=== PATIENT | female | born 1940 | race Caucasian/White ===

== ENCOUNTER 2016-08-27 15:03 | Outpatient (CLI) | payer MEDICARE, OTHER | END 2016-08-27 15:04 | disposition home or self-care (01) | DX: E21.3 Hyperparathyroidism, unspecified (principal); K91.2 Postsurgical malabsorption, not elsewhere classified; Z98.84 Bariatric surgery status ==

== ENCOUNTER 2016-09-10 08:03 | Day surgery (SDC) | payer MEDICARE, OTHER ==
[2016-09-10] MEDS ORDERED: TROPICAMIDE 1% OPHTH 2 ML DROPS OPTH ONE (08:25)
[2016-09-10] MEDS ORDERED: CYCLOPENTOLATE 1% OPHTH DROPS 2 ML OPTH ONE (08:25)
[2016-09-10] MEDS ORDERED: KETOROLAC 0.45% OPHTH DROPS OPTH ONE (08:25)
[2016-09-10] MEDS ORDERED: LACTATED RINGERS 500 ML IV ONE (08:27)
[2016-09-10] MEDS ORDERED: MIDAZOLAM 2 MG/2 ML VIAL IVP ONE (09:38)
[2016-09-10] MEDS ORDERED: TETRACAINE 0.5% OPHTH DROPS 4 ML OPTH ONE (09:43)
[2016-09-10] MEDS ORDERED: levoFLOXacin 0.5% OPHTH DROPS 5 ML OPTH ONE (09:43)
[2016-09-10] MEDS ORDERED: EPINEPHrine 1 MG/ML AMP IO ONE (09:43)
[2016-09-10] MEDS ORDERED: CHONDR SULF/HYALURONATE SYRINGE IO ONE (09:43)
[2016-09-10] MEDS ORDERED: PROPARACAINE 0.5% OPHTH DROPS 15 ML OPTH ONE (09:43)
[2016-09-10] MEDS ORDERED: BRIMONIDINE 0.2% OPHTH DROPS 5 ML OPTH ONE (09:43)
[2016-09-10] MEDS ORDERED: BSS/LIDOCAINE/EPINEPHRINE 1 ML SYRINGE IO ONE (09:44)
== END 2016-09-10 08:04 | disposition home or self-care (01) ==
PROC: 08RJ3JZ Replacement of Right Lens with Synthetic Substitute, Percutaneous Approach (ICD-10-PCS; principal; 2016-09-10 09:00)
DX: H25.11 Age-related nuclear cataract, right eye (principal); Z79.82 Long term (current) use of aspirin; J45.909 Unspecified asthma, uncomplicated; I10 Essential (primary) hypertension; E03.9 Hypothyroidism, unspecified; Z88.2 Allergy status to sulfonamides; Z88.5 Allergy status to narcotic agent
CPT/HCPCS: 66984; V2632

== ENCOUNTER 2016-11-25 16:06 | Outpatient (CLI) | payer MEDICARE, OTHER ==
[2016-11-25 16:46] LABS: CALCIUM 9.2 mg/dL (8.5-10.3); CREATININE 0.6 mg/dL (0.4-1.0); POTASSIUM 3.8 mmol/L (3.5-5.0)
[2016-11-26 08:03] LABS: TEST RESULT REPORT (())
== END 2016-11-25 16:07 | disposition home or self-care (01) ==
LOC: LAB 16:06
PROVIDERS: ATTEND Internal Medicine Endocrinology, Diabetes & Metabolism
DX: E21.3 Hyperparathyroidism, unspecified (principal)
CPT/HCPCS: 36415; 80048; 81599; 82306; 83519; 83970

== ENCOUNTER 2017-02-24 13:23 | Outpatient (CLI) | payer MEDICARE, OTHER ==
[2017-02-24 14:38] LABS: THYROID STIMULATING HORMONE 1.11 uIU/mL (0.34-5.60)
[2017-02-24 15:43] LABS: CALCIUM 9.1 mg/dL (8.5-10.3); CREATININE 0.7 mg/dL (0.4-1.0); MAGNESIUM 2.1 mg/dL (1.7-2.8); POTASSIUM 4.6 mmol/L (3.5-5.0)
== END 2017-02-24 13:24 | disposition home or self-care (01) ==
LOC: LAB 13:23
PROVIDERS: ATTEND Internal Medicine
DX: E21.3 Hyperparathyroidism, unspecified (principal); E21.2 Other hyperparathyroidism; E03.9 Hypothyroidism, unspecified
CPT/HCPCS: 36415; 80048; 82306; 83735; 83970; 84439; 84443

== ENCOUNTER 2017-05-14 08:31 | Outpatient (CLI) | payer MEDICARE, OTHER ==
--- NOTE | 2017-05-14 15:18 | DEXA Report ---
DEXA SCAN: 05/14/2017 CLINICAL INDICATION: History of hyperparathyroidism, bariatric surgery, postmenopausal. TECHNIQUE: Dual energy x-ray absorptiometry (DXA) was performed on a [employer] system. Regions measured are the AP spine, femoral neck, and, if needed, forearm. COMPARISON: None. In accordance with the International Society for Clinical Densitometry (ISCD) guidelines, data from previous exams may be reanalyzed using current recommendations and techniques. This is done to allow a more accurate basis for comparison with the current study. FINDINGS LUMBAR SPINE DATA: REGION BMD (g/cm/cm) T-SCORE Z-SCORE L1 0.928 -1.7 -0.6 L2 1.007 -1.6 -0.5 L3 1.106 -0.8 0.3 L4 1.190 -0.1 1.0 TOTAL 1.075 -0.9 0.2 NOTE: All evaluable vertebrae are used for classification. HIP DATA: REGION BMD (g/cm/cm) T-SCORE Z-SCORE Neck 0.797 -1.7 -0.1 TOTAL 0.894 -0.9 0.5 NOTE: The femoral neck or total proximal femur, whichever is lowest, is used for classification. FOREARM DATA: REGION BMD (g/cm/cm) T-SCORE Z-SCORE 1/3 0.491 -4.4 -1.8 NOTE: The 33% radius of the nondominant forearm is used for classification. IMPRESSION 1. THE WHO CLASSIFICATION BASED ON THE INTERNATIONAL REFERENCE STANDARD: OSTEOPOROSIS. FRACTURE RISK: HIGH. 2. LEFT FOREARM EVALUATION PERFORMED DUE TO HISTORY OF HYPERPARATHYROIDISM. RECOMMENDATION: Patients with diagnosis of osteoporosis or osteopenia should have regular bone mineral density assessment. For those eligible for Medicare, routine testing is allowed once every 2 years. Testing frequency can be increased for patients who have rapidly progressing disease or for those who are receiving medical therapy to restore bone mass. COMMENT: World Health Organization (WHO) definitions for osteoporosis and osteopenia: NORMAL BMD: T-score at -1.0 or higher, fracture risk is low. OSTEOPENIA BMD: T-score between -1.0 and -2.5, fracture risk is increased. OSTEOPOROSIS BMD: T-score at -2.5 or lower, fracture risk high. National Osteoporosis Foundation recommends: 1. Obtain adequate dietary calcium (at least 1200 mg per day) and vitamin D (400 -800 international units per day). 2. Participate, as appropriate, in regular weightbearing and muscle- strengthening exercise. 3. Avoid tobacco use and reduce alcohol and caffeine intake. 4. For more detailed information see the website at www.NOF.org. REVISED: REPORT ORIG. SIGNED 05/15/2017 @ 0930; ORDERS LINKED 05/19/2017 JLL MTDD
== END 2017-05-14 08:32 | disposition home or self-care (01) ==
LOC: DI 08:31
PROVIDERS: ATTEND Internal Medicine Endocrinology, Diabetes & Metabolism
DX: M81.0 Age-related osteoporosis without current pathological fracture (principal); E21.3 Hyperparathyroidism, unspecified; K91.2 Postsurgical malabsorption, not elsewhere classified; Z98.84 Bariatric surgery status
CPT/HCPCS: 36415; 77080; 77081; 80053; 82306; 82607; 82728; 82747; 83540; 83970; 84466; 85025

== ENCOUNTER 2017-05-14 08:58 | Outpatient (CLI) | payer MEDICARE, OTHER ==
[2017-05-14 09:27] LABS: BASOPHILS % (AUTO) 0.1 %; HCT - HEMATOCRIT 37.4 % (37.0-47.0); HGB - HEMOGLOBIN 12.7 g/dL (12.0-16.0); LYMPHOCYTES # (AUTO) 0.7 10^3/uL (1.5-3.5); LYMPHOCYTES % (AUTO) 6.1 %; MEAN CORPUSCULAR HEMOGLOBIN 32.7 pg (27.0-31.0); MEAN CORPUSCULAR HGB CONC 33.9 g/dL (32.0-36.0); MEAN CORPUSCULAR VOLUME 96.4 fL (81.0-99.0); MEAN PLATELET VOLUME 7.8 fL (7.9-10.8); MONOCYTES # (AUTO) 0.5 10^3/uL (0.0-1.0); MONOCYTES % (AUTO) 4.2 %; NEUTROPHILS % (AUTO) 89.6 %; RED BLOOD COUNT 3.88 10^6/uL (4.20-5.40); RED CELL DISTRIBUTION WIDTH 13.9 % (12.0-15.0); UNCORRECTED WHITE BLOOD COUNT 11.2 x10^3/uL; WHITE BLOOD COUNT 11.2 x10^3/uL (4.8-10.8)
[2017-05-14 10:05] LABS: ALBUMIN/GLOBULIN RATIO 1.4 (1.0-2.2); BILIRUBIN,TOTAL 0.4 mg/dL (0.2-1.0); CREATININE 0.8 mg/dL (0.4-1.0); POTASSIUM 4.2 mmol/L (3.5-5.0); TOTAL PROTEIN 6.6 g/dL (6.7-8.2)
[2017-05-14 10:21] LABS: FERRITIN 37.6 ng/mL (11.0-306.8)
== END 2017-05-14 08:59 | disposition home or self-care (01) ==
LOC: LAB 08:58
PROVIDERS: ATTEND Internal Medicine Endocrinology, Diabetes & Metabolism
DX: M81.0 Age-related osteoporosis without current pathological fracture (principal); E21.3 Hyperparathyroidism, unspecified; K91.2 Postsurgical malabsorption, not elsewhere classified; Z98.84 Bariatric surgery status
CPT/HCPCS: 36415; 80053; 82306; 82607; 82728; 82747; 83540; 83970; 84466; 85025

== ENCOUNTER 2017-08-27 10:55 | Outpatient (CLI) | payer MEDICARE, OTHER ==
[2017-08-27 11:28] LABS: CREATININE,URINE 48.2 mg/dL
[2017-08-27 11:36] LABS: CALCIUM 9.2 mg/dL (8.5-10.3); CREATININE 0.7 mg/dL (0.4-1.0)
== END 2017-08-27 10:56 | disposition home or self-care (01) ==
LOC: LAB 10:55
PROVIDERS: ATTEND Internal Medicine Endocrinology, Diabetes & Metabolism
DX: M81.0 Age-related osteoporosis without current pathological fracture (principal); E21.3 Hyperparathyroidism, unspecified; Z98.84 Bariatric surgery status
CPT/HCPCS: 36415; 80048; 81599; 82306; 82340; 82570; 83970

== ENCOUNTER 2017-09-18 11:43 | Outpatient (CLI) | payer MEDICARE, OTHER ==
[2017-09-18 12:05] LABS: BASOPHILS # (AUTO) 0.1 10^3/uL (0.0-0.1); BASOPHILS % (AUTO) 1.3 %; EOSINOPHILS # (AUTO) 0.1 10^3/uL (0.0-0.7); EOSINOPHILS % (AUTO) 1.5 %; HGB - HEMOGLOBIN 13.4 g/dL (12.0-16.0); LYMPHOCYTES # (AUTO) 1.1 10^3/uL (1.5-3.5); LYMPHOCYTES % (AUTO) 20.1 %; MEAN CORPUSCULAR HEMOGLOBIN 32.4 pg (27.0-31.0); MEAN CORPUSCULAR VOLUME 95.2 fL (81.0-99.0); MEAN PLATELET VOLUME 7.3 fL (7.9-10.8); MONOCYTES # (AUTO) 0.4 10^3/uL (0.0-1.0); MONOCYTES % (AUTO) 8.3 %; NEUTROPHILS # (AUTO) 3.7 10^3/uL (1.5-6.6); NEUTROPHILS % (AUTO) 68.8 %; PLT - PLATELET COUNT 177 10^3/uL (130-450); RED BLOOD COUNT 4.12 10^6/uL (4.20-5.40); RED CELL DISTRIBUTION WIDTH 13.7 % (12.0-15.0); WHITE BLOOD COUNT 5.4 x10^3/uL (4.8-10.8)
[2017-09-18 12:19] LABS: ALBUMIN/GLOBULIN RATIO 1.5 (1.0-2.2); BILIRUBIN,TOTAL 0.8 mg/dL (0.2-1.0); CALCIUM 9.3 mg/dL (8.5-10.3); CREATININE 0.5 mg/dL (0.4-1.0); TOTAL PROTEIN 6.7 g/dL (6.7-8.2)
[2017-09-18 12:25] LABS: HB2 TOTAL 14.3 g/dL; HEMOGLOBIN A1C 0.55 g/dL; HEMOGLOBIN A1C % 5.7 % (4.6-6.2)
== END 2017-09-18 11:44 | disposition home or self-care (01) ==
LOC: LAB 11:43
PROVIDERS: ATTEND Internal Medicine
DX: E88.81 Metabolic syndrome and other insulin resistance (principal); C50.919 Malignant neoplasm of unspecified site of unspecified female breast; M85.80 Other specified disorders of bone density and structure, unspecified site; Z79.899 Other long term (current) drug therapy
CPT/HCPCS: 36415; 80053; 83036; 84443; 85025

== ENCOUNTER 2017-11-25 10:18 | Outpatient (CLI) | payer MEDICARE, OTHER ==
[2017-11-25 11:11] LABS: CALCIUM 9.1 mg/dL (8.5-10.3); CREATININE 0.7 mg/dL (0.4-1.0)
== END 2017-11-25 10:19 | disposition home or self-care (01) ==
LOC: LAB 10:18
PROVIDERS: ATTEND Internal Medicine Endocrinology, Diabetes & Metabolism
DX: E21.3 Hyperparathyroidism, unspecified (principal); M81.0 Age-related osteoporosis without current pathological fracture; Z98.84 Bariatric surgery status
CPT/HCPCS: 36415; 80048; 82306; 83970

== ENCOUNTER 2017-11-26 08:00 | Outpatient (CLI) | payer MEDICARE, OTHER | END 2017-11-26 23:59 | disposition home or self-care (01) | LOC: LAB.R 08:00 | PROVIDERS: ATTEND Internal Medicine Endocrinology, Diabetes & Metabolism | DX: E21.3 Hyperparathyroidism, unspecified (principal) | CPT/HCPCS: 82340 ==

== ENCOUNTER 2018-03-09 16:02 | Outpatient (CLI) | payer MEDICARE, OTHER ==
[2018-03-09 16:35] LABS: CALCIUM 9.1 mg/dL (8.5-10.3); CREATININE 0.6 mg/dL (0.4-1.0)
== END 2018-03-09 16:03 | disposition home or self-care (01) ==
LOC: LAB 16:02
PROVIDERS: ATTEND Internal Medicine Endocrinology, Diabetes & Metabolism
DX: E21.3 Hyperparathyroidism, unspecified (principal); M81.0 Age-related osteoporosis without current pathological fracture; Z98.84 Bariatric surgery status
CPT/HCPCS: 36415; 80048; 82306; 83970

== ENCOUNTER 2018-05-11 15:55 | Outpatient (CLI) | payer MEDICARE, OTHER | END 2018-05-11 15:56 | disposition home or self-care (01) | LOC: LAB.R 15:55 | PROVIDERS: ATTEND Internal Medicine | DX: N30.00 Acute cystitis without hematuria (principal) | CPT/HCPCS: 87086; 87181 ==

== ENCOUNTER 2018-05-25 11:41 | Outpatient (CLI) | payer MEDICARE, OTHER ==
[2018-05-25 12:12] LABS: BASOPHILS # (AUTO) 0.1 10^3/uL (0.0-0.1); BASOPHILS % (AUTO) 1.9 %; EOSINOPHILS # (AUTO) 0.1 10^3/uL (0.0-0.7); EOSINOPHILS % (AUTO) 1.6 %; HGB - HEMOGLOBIN 12.4 g/dL (12.0-16.0); LYMPHOCYTES # (AUTO) 1.6 10^3/uL (1.5-3.5); LYMPHOCYTES % (AUTO) 25.5 %; MEAN CORPUSCULAR HEMOGLOBIN 32.9 pg (27.0-31.0); MEAN CORPUSCULAR HGB CONC 34.4 g/dL (32.0-36.0); MEAN CORPUSCULAR VOLUME 95.7 fL (81.0-99.0); MEAN PLATELET VOLUME 7.4 fL (7.9-10.8); MONOCYTES # (AUTO) 0.5 10^3/uL (0.0-1.0); PLT - PLATELET COUNT 268 10^3/uL (130-450); RED BLOOD COUNT 3.77 10^6/uL (4.20-5.40); RED CELL DISTRIBUTION WIDTH 13.7 % (12.0-15.0); WHITE BLOOD COUNT 6.4 x10^3/uL (4.8-10.8)
[2018-05-25 12:30] LABS: ALBUMIN 3.7 g/dL (3.2-5.5); ALBUMIN/GLOBULIN RATIO 1.4 (1.0-2.2); BILIRUBIN,TOTAL 0.4 mg/dL (0.2-1.0); CALCIUM 8.9 mg/dL (8.5-10.3); CREATININE 0.7 mg/dL (0.4-1.0); TOTAL PROTEIN 6.4 g/dL (6.7-8.2)
[2018-05-25 14:04] LABS: FERRITIN 53.4 ng/mL (11.0-306.8)
== END 2018-05-25 11:42 | disposition home or self-care (01) ==
LOC: LAB 11:41
PROVIDERS: ATTEND Nurse Practitioner Adult Health
DX: K91.2 Postsurgical malabsorption, not elsewhere classified (principal)
CPT/HCPCS: 36415; 80053; 82306; 82607; 82728; 82747; 83540; 83970; 84425; 84466; 84590; 85025

== ENCOUNTER 2018-06-18 15:37 | Outpatient (CLI) | payer MEDICARE, OTHER | END 2018-06-18 15:38 | disposition critical access hospital (66) | LOC: EMS 15:37 | PROVIDERS: ATTEND Surgery | DX: S01.21XA Laceration without foreign body of nose, initial encounter (principal); W18.30XA Fall on same level, unspecified, initial encounter; Y92.002 Bathroom of unspecified non-institutional (private) residence as the place of occurrence of the external cause | CPT/HCPCS: A0425; A0429 ==

== ENCOUNTER 2018-06-18 16:01 | Emergency (ER) | payer MEDICARE, OTHER ==
--- NOTE | 2018-06-18 16:15 | ED Physician Documentation ---
History of Present Illness - Stated complaint Stated Complaint: head inj - Chief complaint Chief Complaint: Heent - History obtained from History obtained from: Patient, Family, EMS - History of Present Illness Timing: Today (She had a few drinks and tripped and fell scraping of her face. No loss of consciousness or other injuries) Review of Systems Ten Systems: 10 systems reviewed and negative Constitutional: reports: Reviewed and negative Throat: reports: Reviewed and negative Cardiac: reports: Reviewed and negative PD PAST MEDICAL HISTORY - Past Medical History Cardiovascular: None Respiratory: Asthma Endocrine/Autoimmune: None GI: None, GERD : None HEENT: None Psych: None Musculoskeletal: Osteoporosis Derm: None - Past Surgical History General: Gastric surgery /IT DATA ARCHITECT: Hysterectomy HEENT: Tonsil/Adenoidectomy - Present Medications Home Medications: Ambulatory Orders Medication Instructions Recorded Confirmed Acetaminophen [Tylenol] 325 mg NM Q4-6H PRN 11/29/12 10/28/17 Albuterol 2.5 mg INH Q4H PRN 11/29/12 10/28/17 Cyanocobalamin/Folic Acid [Vitamin 1,200 mcg SL Q2D 11/29/12 10/28/17 W59-[id number] Acid Tablet] Fexofenadine HCl [Gema Allergy] 60 mg PO DAILY PRN 11/29/12 10/28/17 Levothyroxine Sodium [Levoxyl] 75 mcg PO DAILY 11/29/12 10/28/17 Multivitamin [Multivitamins] 2 tab PO DAILY 11/29/12 10/28/17 Cholecalciferol (Vitamin D3) 50,000 unit PO Q3D 03/21/13 10/28/17 [Vitamin D-3] Tamoxifen Citrate 20 mg ORAL DAILY 05/03/14 10/28/17 Fluticasone [Flonase] 1 sprays KUN DAILY PRN 04/18/15 10/28/17 Fluticasone/Salmeterol [Advair Hfa 2 puffs IH DAILY 04/18/15 10/28/17 230-21 Mcg Inhaler] Reddy Cit/Mag/D3/Zn/Chute Tender/Sean/Bor 2,000 mg PO DAILY 10/17/15 10/28/17 [Citracal-Vit D + Magnesium Tab] Potassium Bicarbonate/Cit AC 20 meq PO BID 04/16/16 10/28/17 [Potassium 25 Meq Tablet Eff] hydroCHLOROthiazide [Hydrodiuril] 12.5 mg PO BID 04/16/16 10/28/17 Gabapentin 1 cap PO DAILY 10/28/17 10/28/17 Ergocalciferol [Vitamin D2] 06/18/18 Naltrexone HCl 06/18/18 - Allergies Allergies/Adverse Reactions: Allergies Allergy/AdvReac Type Severity Reaction Status Date / Time Sulfa (Sulfonamide Allergy Severe Edema Verified 06/18/18 16:06 Antibiotics) codeine Allergy Intermediate Itching Verified 06/18/18 16:06 latex Allergy Rash Verified 06/18/18 16:06 - Social History Does the pt smoke?: Yes Smoking Status: Current every day smoker Does the pt drink ETOH?: Yes Does the pt have substance abuse?: No - Immunizations Immunizations are current?: Yes PD ED PE NORMAL - Vitals Vital signs reviewed: Yes - General General: Alert and oriented X 3, No acute distress - HEENT HEENT: PERRL, EOMI, Other (No facial bony tenderness. She has resolved epistaxis but no septal hematoma or nasal tenderness. The upper lip is swollen on the right but there is no laceration.) - Neck Neck: Supple, no meningeal sign, No bony TTP - Cardiac Cardiac: RRR, No murmur - Respiratory Respiratory: No respiratory distress, Clear bilaterally - Abdomen Abdomen: Soft, Non tender - Derm Derm: Normal color, Warm and dry - Extremities Extremities: No edema, No calf tenderness / cord - Neuro Neuro: Alert and oriented X 3, Normal speech - Psych Psych: Normal mood, Normal affect Results - Vitals Vitals: Vital Signs - 24 hr 06/18/18 16:01 Heart Rate 72 Respiratory 16 Rate Blood Pressure 125/62 O2 Saturation 98 Oxygen O2 Source Room air - Rads (name of study) CT Head Radiology: EMP read contemporaneously (NAD) CT Cspine Radiology: EMP read contemporaneously ([facility] NAD) Departure - Departure Disposition: 01 Home, Self Care Clinical Impression: Fall Qualifiers: Encounter type: initial encounter Qualified Code(s): W19.XXXA - Unspecified fall, initial encounter Head injury Qualifiers: Encounter type: initial encounter Qualified Code(s): S09.90XA - Unspecified injury of head, initial encounter Condition: Good Record reviewed to determine appropriate education?: Yes Instructions: ED Head Injury Closed Sleep Mon Comments: Call your doctor to arrange a follow-up appointment, make the next available appointment. In the interim, return anytime if worse or if new symptoms develop.
[2018-06-18] MEDS: TETANUS/DIPHTHERIA/PERTUSSIS 0.5 ML SYRINGE IM ONE (16:21)
--- NOTE | 2018-06-18 17:08 | CT Report ---
Reason: head inj etoh Procedure Date: 06/18/2018 Accession Number: [id number] / [id number] Procedure: CT - Head W/O CPT Code: FULL RESULT: EXAM: CT HEAD EXAM DATE: 06/18/2018 04:20 PM. CLINICAL HISTORY: Head injury, ETOH. COMPARISON: None. TECHNIQUE: Multiaxial CT images were obtained from the foramen magnum to the vertex. Reformats: Sagittal and coronal. IV contrast: None. In accordance with CT protocol optimization, one or more of the following dose reduction techniques were utilized for this exam: automated exposure control, adjustment of mA and/or KV based on patient size, or use of iterative reconstructive technique. FINDINGS: Parenchyma: There are mild periventricular low density white matter changes. No evidence of acute infarction or hemorrhage. Extraaxial Spaces: Normal for age. No subdural or epidural collections identified. Ventricles: Normal in size and position. Sinuses and Orbits: Imaged paranasal sinuses, orbits, and mastoids show no significant abnormality. Bones: No evidence of fracture or calvarial defect. Other: None. IMPRESSION: No acute intracranial abnormality. RADIA
--- NOTE | 2018-06-18 17:17 | CT Report ---
Reason: head inj etoh Procedure Date: 06/18/2018 Accession Number: [id number] / [id number] Procedure: CT - Cervical Spine W/O CPT Code: FULL RESULT: EXAM: CT CERVICAL SPINE WITHOUT CONTRAST DATE: 06/18/2018 04:45 PM. HISTORY: Head injury; ETOH. COMPARISONS: None. TECHNIQUE: Thin-section axial images were acquired of the cervical spine without contrast. Post-processing: Coronal and sagittal reformats. Other: None. In accordance with CT protocol optimization, one or more of the following dose reduction techniques were utilized for this exam: automated exposure control, adjustment of mA and/or KV based on patient size, or use of iterative reconstructive technique. FINDINGS: Alignment: There is approximately 3 mm of C3 on C4 anterolisthesis. Bones: No fracture or bone lesion. Interspace Levels/Facets: There is moderate degenerative disk space narrowing at C4-C5, C5-C6 and C6-C7 with mild posterior degenerative bulging disk osteophyte complexes. Bilateral multilevel facet joint arthropathy present. Musculature: Normal. No fatty atrophy. Other: The paravertebral and prevertebral soft tissues are unremarkable. The lung apices are clear. IMPRESSION: 1. No cervical spine fracture or malalignment. 2. C4-C5, C5-C6 and C6-C7 disk related degenerative changes. RADIA
[2018-06-18 18:02] VITALS: BP 137/49
== END 2018-06-18 18:02 | disposition home or self-care (01) ==
LOC: EDUNIT# → ED 16:01
DX: S09.90XA Unspecified injury of head, initial encounter (principal); W18.30XA Fall on same level, unspecified, initial encounter; W22.8XXA Striking against or struck by other objects, initial encounter; R22.0 Localized swelling, mass and lump, head; F17.200 Nicotine dependence, unspecified, uncomplicated
CPT/HCPCS: 70450; 72125; 90471; 99283

== ENCOUNTER 2018-07-15 13:40 | Outpatient (CLI) | payer MEDICARE, OTHER | END 2018-07-15 23:59 | disposition home or self-care (01) | LOC: LAB.R 13:40 | PROVIDERS: ATTEND Obstetrics & Gynecology | DX: L90.0 Lichen sclerosus et atrophicus (principal); N76.0 Acute vaginitis | CPT/HCPCS: 87480; 87510; 87660 ==

== ENCOUNTER 2018-07-26 10:56 | Outpatient (CLI) | payer MEDICARE, OTHER ==
[2018-07-26 11:33] LABS: CREATININE 0.8 mg/dL (0.4-1.0)
== END 2018-07-26 10:57 | disposition home or self-care (01) ==
LOC: LAB 10:56
PROVIDERS: ATTEND Internal Medicine Endocrinology, Diabetes & Metabolism
DX: M81.0 Age-related osteoporosis without current pathological fracture (principal); E21.3 Hyperparathyroidism, unspecified
CPT/HCPCS: 36415; 80048; 81599; 82306; 82340; 82570; 83970

== ENCOUNTER 2018-08-11 15:24 | Outpatient (CLI) | payer MEDICARE, OTHER ==
[2018-08-11 15:49] LABS: CALCIUM 9.3 mg/dL (8.5-10.3); CREATININE 0.8 mg/dL (0.4-1.0)
== END 2018-08-11 15:25 | disposition home or self-care (01) ==
LOC: LAB 15:24
PROVIDERS: ATTEND Internal Medicine Endocrinology, Diabetes & Metabolism
DX: E21.3 Hyperparathyroidism, unspecified (principal)
CPT/HCPCS: 36415; 80048; 81599; 82310; 83970

== ENCOUNTER 2018-09-10 04:59 | Outpatient (CLI) | payer MEDICARE, OTHER | END 2018-09-10 23:59 | LOC: LAB.R 04:59 | PROVIDERS: ATTEND Obstetrics & Gynecology | DX: N76.0 Acute vaginitis (principal) | CPT/HCPCS: 87480; 87510; 87660 ==

== ENCOUNTER 2019-06-01 09:12 | Outpatient (CLI) | payer MEDICARE, OTHER ==
--- NOTE | 2019-06-01 15:59 | DEXA Report ---
Reason: AGE RELATED OSTEOPOROSIS Procedure Date: 06/01/2019 Accession Number: [id number] / [id number] Procedure: DEX - Dexa Spine and/or Hip CPT Code: Final Report FULL RESULT: EXAM: Dexa Spine and/or Hip, Dexa Forearm DATE: 06/01/2019 9:46 AM CLINICAL HISTORY: AGE RELATED OSTEOPOROSIS TECHNIQUE: Dual energy x-ray absorptiometry (DXA) was performed on a [employer] System. Regions measured are the AP Spine, femoral neck, and if needed forearm. COMPARISON: 05/14/2017. In accordance with the International Society for Clinical Densitometry (ISCD) guidelines, data from previous exams may be reanalyzed using current recommendations and techniques. This is done to allow a more accurate basis for comparison with the current study. FINDINGS: The data for the lumbar spine is as follows: BMD (g/cm/cm) T-SCORE Z-SCORE REGION L1 1.061 -0.6 0.6 L2 1.005 -1.6 -0.5 L3 1.048 -1.3 -0.1 L4 1.115 -0.7 0.4 TOTAL 1.061 -1.0 0.2 NOTE: All evaluable vertebrae are used for classification The data for the hip is as follows: BMD (g/cm/cm) T-SCORE Z-SCORE REGION Neck 0.791 -1.8 0.0 TOTAL 0.894 -0.9 0.6 NOTE: The femoral neck or total proximal femur, whichever is lowest, is used for classification. The data for the left forearm is as follows: BMD (g/cm/cm) T-SCORE Z-SCORE REGION 1/3 0.562 -3.6 -0.8 NOTE: The 33% radius of the nondominant forearm is used for classification. DXA RESULTS SUMMARY: Spine SCAN DATE AGE BMD CHANGE VS CHANGE VS PREVIOUS PREVIOUS % [birth year]01/2019 [age] 1.061 -0.014 -1.3 05/14/2017 [age] 1.075 * Denotes significant change at the 95% confidence level. Denotes dissimilar scan types or analysis methods. DXA RESULTS SUMMARY: Hip SCAN DATE AGE BMD CHANGE VS CHANGE VS PREVIOUS PREVIOUS % [birth year]2019 80.7 0.894 0.000 0.0 05/14/2017 76.7 0.894 * Denotes significant change at the 95% confidence level. Denotes dissimilar scan types or analysis methods. DXA RESULTS SUMMARY: Forearm SCAN DATE AGE BMD CHANGE VS CHANGE VS PREVIOUS PREVIOUS % [birth year]01/2019 80.7 0.562 0.071* 14.5* 05/14/2017 76.7 0.491 * Denotes significant change at the 95% confidence level. Denotes dissimilar scan types or analysis methods. IMPRESSION: 1. THE WHO CLASSIFICATION BASED ON THE INTERNATIONAL REFERENCE STANDARD IS OSTEOPOROSIS. THE FRACTURE RISK REMAINS HIGH. 2. THERE HAS BEEN A STATISTICALLY SIGNIFICANT IMPROVEMENT IN BONE MARROW DENSITY SINCE THE PRIOR EXAM, REFERENCE FOREARM RESULTS. RECOMMENDATION: Patients with diagnosis of osteoporosis or osteopenia should have regular bone mineral density assessment. For those eligible for Medicare, routine testing is allowed once every 2 years. Testing frequency can be increased for patients who have rapidly progressing disease or for those who are receiving medical therapy to restore bone mass. COMMENT: World Health Organization (WHO) definitions for osteoporosis and osteopenia: NORMAL BMD: T-score at -1.0 or higher, fracture risk is low OSTEOPENIA BMD: T-score between -1.0 and -2.5, fracture risk is increased. OSTEOPOROSIS BMD: T-score at -2.5 or lower, fracture risk is high. National Osteoporosis Foundation recommends: 1. Obtain adequate dietary calcium (at least 1200 mg per day) and vitamin D (400-800 international units per day). 2. Participate, as appropriate, in regular weightbearing and muscle-strengthening exercise. 3. Avoid tobacco use and reduce alcohol and caffeine intake. 4. For more detailed information see the website at www.NOF.org.
== END 2019-06-01 09:13 | disposition home or self-care (01) ==
LOC: DI 09:12
PROVIDERS: ATTEND Internal Medicine
DX: M81.0 Age-related osteoporosis without current pathological fracture (principal); C50.912 Malignant neoplasm of unspecified site of left female breast
CPT/HCPCS: 77080; 77081

== ENCOUNTER 2019-06-07 12:37 | Outpatient (CLI) | payer MEDICARE, OTHER ==
--- NOTE | 2019-06-08 09:23 | XRAY Report ---
Reason: L KNEE PAIN Procedure Date: 06/07/2019 Accession Number: [id number] / [id number] Procedure: XRN - Knee 4 View LT CPT Code: Final Report FULL RESULT: EXAM: LEFT KNEE RADIOGRAPHY EXAM DATE: 06/07/2019 01:03 PM. CLINICAL HISTORY: Left knee pain. [place] knee pop twice in the last 7 days. COMPARISON: None. TECHNIQUE: 4 views. FINDINGS: Bones: Normal. No fractures or bone lesions. Joints: There is a trace joint effusion. No dislocation. Soft Tissues: Normal. No soft tissue swelling. IMPRESSION: Trace joint effusion with no fracture or dislocation. RADIA
== END 2019-06-07 12:38 | disposition home or self-care (01) ==
LOC: DI.N 12:37
PROVIDERS: ATTEND Physician Assistant
DX: M25.462 Effusion, left knee (principal); M25.562 Pain in left knee

== ENCOUNTER 2019-08-05 11:26 | Outpatient (CLI) | payer MEDICARE, OTHER | END 2019-08-05 11:27 | disposition home or self-care (01) | LOC: LAB 11:26 | PROVIDERS: ATTEND Nurse Practitioner Family | DX: K91.2 Postsurgical malabsorption, not elsewhere classified (principal) | CPT/HCPCS: 82747 ==

== ENCOUNTER 2019-10-19 10:59 | Outpatient (CLI) | payer MEDICARE, OTHER ==
--- NOTE | 2019-10-19 16:48 | XRAY Report ---
Reason: RIGHT WRIST PAIN Procedure Date: 10/19/2019 Accession Number: [id number] / [id number] Procedure: WCP - Wrist 3 View RT CPT Code: Final Report FULL RESULT: EXAM: RIGHT WRIST RADIOGRAPHY EXAM DATE: 10/19/2019 10:59 AM. CLINICAL HISTORY: RIGHT WRIST PAIN. COMPARISON: KNEE 4 VIEW LT 06/07/2019 1:05 PM. TECHNIQUE: 3 views. FINDINGS: Generalized bony demineralization. Advanced narrowing with osteophytic spurring at the first carpometacarpal articulation, as well as the articulation of the scaphoid with the trapezium. Mild narrowing elsewhere within the intercarpal articulations. Subchondral cystic changes of the capitate and pisiform. Advanced narrowing with subchondral sclerotic changes at the first metacarpophalangeal articulation. Mild to moderate narrowing of the interphalangeal articulations throughout the hand, with mild osteophytic spurring. No fracture or subluxation detected. 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 RADIA
== END 2019-10-19 23:59 | disposition home or self-care (01) ==
LOC: DI.WCP 10:59
PROVIDERS: ATTEND Nurse Practitioner
DX: M19.031 Primary osteoarthritis, right wrist (principal)

== ENCOUNTER 2019-12-12 07:00 | Outpatient (CLI) | payer MEDICARE, OTHER | END 2019-12-12 23:59 | disposition home or self-care (01) | LOC: LAB.R 07:00 | PROVIDERS: ATTEND Nurse Practitioner Family | DX: N39.0 Urinary tract infection, site not specified (principal) | CPT/HCPCS: 87086; 87181 ==

== ENCOUNTER 2020-02-29 13:03 | Outpatient (CLI) | payer MEDICARE, OTHER ==
[2020-02-29 13:56] LABS: THYROID STIMULATING HORMONE 0.18 uIU/mL (0.34-5.60)
[2020-02-29 13:58] LABS: FREE T4 (FREE THYROXINE) 1.25 ng/dL (0.58-1.64)
== END 2020-02-29 13:04 | disposition home or self-care (01) ==
LOC: LAB 13:03
PROVIDERS: ATTEND Internal Medicine Endocrinology, Diabetes & Metabolism
DX: E03.8 Other specified hypothyroidism (principal); E06.3 Autoimmune thyroiditis; E21.3 Hyperparathyroidism, unspecified
CPT/HCPCS: 36415; 82310; 83970; 84439; 84443

== ENCOUNTER 2020-04-06 13:51 | Outpatient (CLI) | payer MEDICARE, OTHER ==
[2020-04-06 15:06] LABS: THYROID STIMULATING HORMONE 3.37 uIU/mL (0.34-5.60)
[2020-04-06 15:10] LABS: FREE T4 (FREE THYROXINE) 0.9 ng/dL (0.58-1.64)
== END 2020-04-06 13:52 | disposition home or self-care (01) ==
LOC: LAB 13:51
PROVIDERS: ATTEND Internal Medicine Endocrinology, Diabetes & Metabolism
DX: E06.3 Autoimmune thyroiditis (principal); E03.8 Other specified hypothyroidism; E21.3 Hyperparathyroidism, unspecified
CPT/HCPCS: 36415; 82310; 83970; 84439; 84443

== ENCOUNTER 2020-06-09 12:56 | Emergency (ER) | payer MEDICARE, OTHER ==
--- NOTE | 2020-06-09 13:11 | ED Physician Documentation ---
History of Present Illness - Stated complaint Stated Complaint: DIZZINESS - Chief complaint Chief Complaint: Neuro - History obtained from History obtained from: Patient - History of Present Illness Timing: Last night Pain level max: 0 Pain level now: 0 - Additonal information Additional information: 79-year-old female presents to the emergency department stating that she has felt dizzy since last night. She describes the feeling as the room spinning. Seems to be worse with standing up and walking. She states she feels off balance. Denies any headache, head injury or fall. No recent illnesses, she states that she feels like her sinuses are congested however. Has a remote history of breast cancer, not currently undergoing chemotherapy. No changes to her medications recently. Better with rest. Review of Systems Ten Systems: 10 systems reviewed and negative Constitutional: denies: Fever, Chills Eyes: denies: Decreased vision, Photophobia Ears: denies: Ear pain Nose: denies: Rhinorrhea / runny nose, Congestion Throat: denies: Sore throat Cardiac: denies: Chest pain / pressure Respiratory: denies: Cough GI: denies: Nausea, Vomiting, Diarrhea Skin: denies: Rash Musculoskeletal: denies: Neck pain, Back pain Neurologic: denies: Focal weakness, Numbness, Headache, Head injury, LOC PD PAST MEDICAL HISTORY - Past Medical History Past Medical History: Yes Cardiovascular: None Respiratory: Asthma Endocrine/Autoimmune: None GI: None, GERD : None HEENT: None Psych: None Musculoskeletal: Osteoporosis Derm: None - Past Surgical History 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 HEENT: Tonsil/Adenoidectomy - Present Medications Home Medications: Ambulatory Orders Medication Instructions Recorded Confirmed Acetaminophen [Tylenol] 325 mg MI Q4-6H PRN 11/29/12 04/25/20 Albuterol 2.5 mg INH Q4H PRN 11/29/12 04/25/20 Cyanocobalamin/Folic Acid [Vitamin 1,200 mcg SL Q2D 11/29/12 04/25/20 L73-Cbubw Acid Tablet] Fexofenadine HCl [Gema Allergy] 60 mg PO DAILY PRN 11/29/12 04/25/20 Levothyroxine Sodium [Levoxyl] 75 mcg PO DAILY 11/29/12 04/25/20 Multivitamin [Multivitamins] 2 tab PO DAILY 11/29/12 04/25/20 Fluticasone [Flonase] 1 sprays KUN DAILY PRN 04/18/15 04/25/20 Fluticasone/Salmeterol [Advair Hfa 2 puffs IH DAILY 04/18/15 04/25/20 230-21 Mcg Inhaler] Reddy Cit/Mag/D3/Zn/Associate Account Director/Sean/Bor 2,000 mg PO DAILY 10/17/15 04/25/20 [Citracal-Vit D + Magnesium Tab] Potassium Bicarbonate/Cit AC 20 meq PO BID 04/16/16 04/25/20 [Potassium 25 Meq Tablet Eff] hydroCHLOROthiazide [Hydrodiuril] 12.5 mg PO BID 04/16/16 04/25/20 Gabapentin 2 cap PO DAILY 10/28/17 04/25/20 Ergocalciferol [Vitamin D2] 06/18/18 Naltrexone HCl 06/18/18 Tamoxifen Citrate 20 mg ORAL DAILY 90 Days #90 tab 04/25/20 Meclizine HCl [Antivert] 25 mg PO Q6H PRN #20 tablet 06/09/20 - Allergies Allergies/Adverse Reactions: Allergies Allergy/AdvReac Type Severity Reaction Status Date / Time Sulfa (Sulfonamide Allergy Severe Edema Verified 06/09/20 12:58 Antibiotics) codeine Allergy Intermediate Itching Verified 06/09/20 12:58 latex Allergy Rash Verified 06/09/20 12:58 - Social History Does the pt smoke?: Yes Smoking Status: Current every day smoker Does the pt drink ETOH?: Yes Does the pt have substance abuse?: No - Immunizations Immunizations are current?: Yes PD ED PE NORMAL - Vitals Vital signs reviewed: Yes - General General: Alert and oriented X 3, No acute distress - HEENT HEENT: Moist mucous membranes - Neck Neck: Supple, no meningeal sign - Cardiac Cardiac: RRR - Respiratory Respiratory: No respiratory distress, Clear bilaterally - Abdomen Abdomen: Soft, Non tender, Non distended - Back Back: No CVA TTP - Derm Derm: Warm and dry - Extremities Extremities: No edema, No calf tenderness / cord - Neuro Neuro: Alert and oriented X 3, sr. manager corporate communications 2-12 intact, No motor deficit, No sensory deficit, Normal speech, Other (mild nystagmus, + hallpike to the R, normal finger to nose.) Eye Opening: Spontaneous Motor: Obeys Commands Verbal: Oriented GCS Score: 15 - Psych Psych: Normal mood, Normal affect Results - Vitals Vitals: Vital Signs - 24 hr 06/09/20 06/09/20 06/09/20 12:58 13:30 13:53 Temperature 36.8 C Heart Rate 81 71 Heart Rate [ 57 L Sitting] Heart Rate [ 67 Standing] Heart Rate [ 69 Supine] Respiratory 18 13 Rate Blood Pressure 131/54 H 131/58 H Blood Pressure 148/62 H [Sitting] Blood Pressure 145/64 H [Standing] Blood Pressure 131/70 H [Supine] O2 Saturation 99 100 06/09/20 06/09/20 06/09/20 14:23 14:30 15:20 Temperature Heart Rate 64 63 60 Heart Rate [ Sitting] Heart Rate [ Standing] Heart Rate [ Supine] Respiratory 10 L 18 18 Rate Blood Pressure 129/57 L 132/69 H 136/67 H Blood Pressure [Sitting] Blood Pressure [Standing] Blood Pressure [Supine] O2 Saturation 99 99 99 06/09/20 06/09/20 15:30 16:00 Temperature Heart Rate 68 70 Heart Rate [ Sitting] Heart Rate [ Standing] Heart Rate [ Supine] Respiratory 12 17 Rate Blood Pressure 118/77 136/61 H Blood Pressure [Sitting] Blood Pressure [Standing] Blood Pressure [Supine] O2 Saturation 100 100 Oxygen O2 Source Room air - EKG (time done) 1312 Rate: Rate (enter#) (70) Rhythm: NSR [place]: Normal Intervals: Normal MI QRS: Normal Ischemia: Non specific changes Compare to prior EKG: Old EKG unavailable - Labs Labs: Laboratory Tests 06/09/20 06/09/20 06/09/20 13:20 13:20 13:20 WBC 4.9 RBC 3.79 L Hgb 12.3 Hct 37.7 MCV 99.5 H MCH 32.5 H MCHC 32.6 RDW 13.9 Plt Count 157 MPV 9.7 Neut # (Auto) 3.0 Lymph # (Auto) 1.5 Divide # (Auto) 0.3 Eos # (Auto) 0.1 Baso # (Auto) 0.0 Absolute Nucleated RBC 0.00 Nucleated RBC % 0.0 Sodium 140 Potassium 3.4 L Chloride 105 Carbon Dioxide 27 Anion Gap 8.0 BUN 11 Creatinine 0.8 Estimated GFR (MDRD) 69 L Glucose 116 H Calcium 9.3 Total Bilirubin 0.7 AST 17 ALT 13 Alkaline Phosphatase 55 Troponin I High Sens 2.6 Total Protein 6.0 L Albumin 3.7 Globulin 2.3 Albumin/Globulin Ratio 1.6 Lipase 25 Urine Color Urine Clarity Urine pH Ur Specific [place] Urine Protein Urine Glucose (UA) Urine Ketones Urine Occult Blood Urine Nitrite Urine Bilirubin Urine Urobilinogen Ur Leukocyte Esterase Urine RBC Urine WBC Ur Squamous Epith Cells Urine Bacteria Ur Microscopic Review Urine Culture Comments 06/09/20 15:11 WBC RBC Hgb Hct MCV MCH MCHC RDW Plt Count MPV Neut # (Auto) Lymph # (Auto) Divide # (Auto) Eos # (Auto) Baso # (Auto) Absolute Nucleated RBC Nucleated RBC % Sodium Potassium Chloride Carbon Dioxide Anion Gap BUN Creatinine Estimated GFR (MDRD) Glucose Calcium Total Bilirubin AST ALT Alkaline Phosphatase Troponin I High Sens Total Protein Albumin Globulin Albumin/Globulin Ratio Lipase Urine Color STRAW Urine Clarity HAZY Urine pH 7.5 Ur Specific [place] 1.015 Urine Protein NEGATIVE Urine Glucose (UA) NEGATIVE Urine Ketones NEGATIVE Urine Occult Blood SMALL H Urine Nitrite NEGATIVE Urine Bilirubin NEGATIVE Urine Urobilinogen 0.2 (NORMAL) Ur Leukocyte Esterase MODERATE H Urine RBC 6-10 H Urine WBC 6-10 H Ur Squamous Epith Cells NONE SEEN Urine Bacteria Few Ur Microscopic Review INDICATED Urine Culture Comments INDICATED - Rads (name of study) head Ct Radiology: Prelim report reviewed, EMP read contemporaneously, See rad report (no acute abnormality.) PD MEDICAL DECISION MAKING - ED course Complexity details: reviewed results, re-evaluated patient, considered differential, d/w patient ED course: 79 year old female with vertigo today. Normal cerebellar tests. No focal neuro deficits. No evidence of stroke. She is still mildly symptomatic, I did offer her observation in the hospital to monitor her for continued improvement as well as an MRI to exclude any cerebellar stroke. Patient refuses this and would like to go home instead. We will have her follow-up closely with her doctor and if she fails to improve, she should have the MRI. Patient is well-appearing, nontoxic. Afebrile. Patient counseled regarding signs and symptoms for which I believe and urgent re-evaluation would be necessary. Patient with good understanding of and agreement to plan and is comfortable going home at this time This document was made in part using voice recognition software. While efforts are made to proofread this document, sound alike and grammatical errors may occur. Normal gait. Departure - Departure Disposition: 01 Home, Self Care Clinical Impression: Vertigo Condition: Good Instructions: ED Vertigo Unspecified Follow-Up: Rafi Rolle MD [Primary Care Provider] - Within 3 Days Prescriptions: Meclizine HCl [Antivert] 25 mg PO Q6H PRN #20 tablet PRN Reason: Vertigo Comments: Return if you worsen. This should improve over the next few days. As we discussed there is a possibility of a cerebellar stroke, therefore if your symptoms do not improve, you should have the MRI as discussed today. Discharge Date/Time: 06/09/20 16:28
[2020-06-09] MEDS ORDERED: SODIUM CHLORIDE 0.9% 1,000 ML IV STA (13:23)
[2020-06-09] MEDS ORDERED: MECLIZINE 12.5 MG TABLET PO STA (13:23)
[2020-06-09 13:28] LABS: BASOPHILS % (AUTO) 0.6 %; EOSINOPHILS # (AUTO) 0.1 10^3/uL (0.0-0.7); EOSINOPHILS % (AUTO) 1.9 %; HGB - HEMOGLOBIN 12.3 g/dL (12.0-16.0); LYMPHOCYTES # (AUTO) 1.5 10^3/uL (1.5-3.5); LYMPHOCYTES % (AUTO) 30.3 %; MEAN CORPUSCULAR HEMOGLOBIN 32.5 pg (27.0-31.0); MEAN CORPUSCULAR HGB CONC 32.6 g/dL (32.0-36.0); MEAN CORPUSCULAR VOLUME 99.5 fL (81.0-99.0); MEAN PLATELET VOLUME 9.7 fL (7.9-10.8); MONOCYTES # (AUTO) 0.3 10^3/uL (0.0-1.0); MONOCYTES % (AUTO) 5.8 %; NEUTROPHILS % (AUTO) 61.2 %; PLT - PLATELET COUNT 157 10^3/uL (130-450); RED BLOOD COUNT 3.79 10^6/uL (4.20-5.40); RED CELL DISTRIBUTION WIDTH 13.9 % (12.0-15.0); WHITE BLOOD COUNT 4.9 x10^3/uL (4.8-10.8)
[2020-06-09 13:40] LABS: ALBUMIN 3.7 g/dL (3.2-5.5); ALBUMIN/GLOBULIN RATIO 1.6 (1.0-2.2); BILIRUBIN,TOTAL 0.7 mg/dL (0.2-1.0); CALCIUM 9.3 mg/dL (8.5-10.3); CREATININE 0.8 mg/dL (0.4-1.0)
--- NOTE | 2020-06-09 13:56 | XRAY Report ---
PROCEDURE: Chest 1 View X-Ray INDICATIONS: Chest Pain TECHNIQUE: One view of the chest was acquired. COMPARISON: Lung apices on CT cervical spine 06/18/2018. FINDINGS: Surgical changes and devices: Bilateral axillary and breast clips. Lungs and pleura: No pleural effusions or pneumothorax. Lungs are clear. Mediastinum: Mediastinal contours appear normal. Heart size is normal. Bones and chest wall: No suspicious bony lesions. Overlying soft tissues appear unremarkable. IMPRESSION: No acute cardiopulmonary abnormality. Reviewed by: Galen Bundy MD on 06/09/2020 12:54 PM [facility] Approved by: Galen Bundy MD on 06/09/2020 12:54 PM [facility] Station ID: [id number]
--- NOTE | 2020-06-09 14:42 | CT Report ---
PROCEDURE: HEAD WO INDICATIONS: dizzy TECHNIQUE: Noncontrast 4.5 mm thick angled axial sections acquired from the foramen magnum to the vertex. For r adiation dose reduction, the following was used: automated exposure control, adjustment of mA and/or kV according to patient size. COMPARISON: None. FINDINGS: Image quality: Excellent. CSF spaces: Basal cisterns are patent. No extra-axial fluid collections. Ventricles are normal in size and shape. Brain: No midline shift. No intracranial masses or hemorrhage. Vazquez-white matter interface is norm al. Skull and face: Calvarium and visualized facial bones are intact, without suspicious lesions. Sinuses: Visualized sinuses and mastoids are clear. IMPRESSION: No acute intracranial process. Reviewed by: Khalif Perla MD on 06/09/2020 2:41 PM [facility] Approved by: Khalif Perla MD on 06/09/2020 2:41 PM PST Station ID: [id number]
[2020-06-09 15:31] LABS: BILIRUBIN,URINE NEGATIVE (NEGATIVE); GLUCOSE, URINE (UA) NEGATIVE (NEGATIVE); KETONES,URINE (UA) NEGATIVE (NEGATIVE); LEUKOCYTE ESTERASE, URINE MODERATE (NEGATIVE); NITRITE,URINE NEGATIVE (NEGATIVE); OCCULT BLOOD,URINE SMALL (NEGATIVE); PH,URINE 7.5 PH (5.0-7.5); PROTEIN,URINE NEGATIVE (NEGATIVE); UROBILINOGEN,URINE 0.2 (NORMAL) E.U./dL (NORMAL)
[2020-06-09 15:37] LABS: CLARITY,URINE HAZY (CLEAR)
[2020-06-09 15:38] LABS: BACTERIA,URINE Few /HPF (None Seen); SQUAMOUS EPITHELIAL CELL,UR NONE SEEN (<= Few)
[2020-06-09 16:24] VITALS: BP 136/61
== END 2020-06-09 16:28 | disposition home or self-care (01) ==
LOC: ED 12:56
DX: R42 Dizziness and giddiness (principal); Z08 Encounter for follow-up examination after completed treatment for malignant neoplasm; Z85.3 Personal history of malignant neoplasm of breast; F17.200 Nicotine dependence, unspecified, uncomplicated
CPT/HCPCS: 36415; 70450; 71045; 80053; 81001; 83690; 84484; 85025; 87086; 93005; 99284; A9270; 81003

== ENCOUNTER 2020-08-27 08:43 | Outpatient (CLI) | payer MEDICARE, OTHER ==
[2020-08-27 09:27] LABS: BASOPHILS % (AUTO) 0.7 %; EOSINOPHILS # (AUTO) 0.1 10^3/uL (0.0-0.7); EOSINOPHILS % (AUTO) 1.5 %; HCT - HEMATOCRIT 38.7 % (37.0-47.0); HGB - HEMOGLOBIN 12.4 g/dL (12.0-16.0); LYMPHOCYTES # (AUTO) 1.4 10^3/uL (1.5-3.5); LYMPHOCYTES % (AUTO) 22.2 %; MEAN CORPUSCULAR HEMOGLOBIN 32.4 pg (27.0-31.0); MEAN PLATELET VOLUME 9.9 fL (7.9-10.8); MONOCYTES # (AUTO) 0.4 10^3/uL (0.0-1.0); MONOCYTES % (AUTO) 6.4 %; NEUTROPHILS # (AUTO) 4.2 10^3/uL (1.5-6.6); PLT - PLATELET COUNT 167 10^3/uL (130-450); RED BLOOD COUNT 3.83 10^6/uL (4.20-5.40); RED CELL DISTRIBUTION WIDTH 13.8 % (12.0-15.0); WHITE BLOOD COUNT 6.1 x10^3/uL (4.8-10.8)
[2020-08-27 09:34] LABS: SLIDE REVIEW? Indicated
[2020-08-27 09:52] LABS: ALBUMIN 4.1 g/dL (3.2-5.5); ALBUMIN/GLOBULIN RATIO 1.5 (1.0-2.2); BILIRUBIN,TOTAL 0.7 mg/dL (0.2-1.0); CALCIUM 10.2 mg/dL (8.5-10.3); CREATININE 0.8 mg/dL (0.4-1.0); POTASSIUM 3.9 mmol/L (3.5-5.0); TOTAL PROTEIN 6.8 g/dL (6.7-8.2)
[2020-08-27 09:55] LABS: RBC MORPHOLOGY (MULTIPLE) 1+ ANISOCYTOSIS (NORMAL)
[2020-08-27 10:03] LABS: FERRITIN 49.5 ng/mL (11.0-306.8)
[2020-08-27 10:22] LABS: ESTIMATED AVERAGE GLUCOSE 105 mg/dL (70-100); HEMOGLOBIN A1c% 5.3 % (4.27-6.07)
[2020-08-29 14:59] LABS: CERULOPLASMIN 36 mg/dL (18-53)
== END 2020-08-27 08:44 | disposition home or self-care (01) ==
LOC: LAB 08:43
PROVIDERS: ATTEND Nurse Practitioner Family
DX: K91.2 Postsurgical malabsorption, not elsewhere classified (principal)
CPT/HCPCS: 36415; 80053; 82390; 82525; 82607; 82728; 82747; 83036; 83540; 84425; 84466; 84590; 84630; 85025

== ENCOUNTER 2021-01-05 14:36 | Outpatient (CLI) | payer MEDICARE, OTHER ==
--- NOTE | 2021-01-05 15:42 | Ultrasound Report ---
PROCEDURE: Carotid Doppler Complete INDICATIONS: RIGHT CAROTID BRUIT TECHNIQUE: Color and pulse Doppler interrogation was performed of both carotid systems, with image documentation and velocity measurements. COMPARISON: None. FINDINGS: Right side: Brachial blood pressure: Not done Common carotid artery peak systolic velocity: 85 cm/sec. Internal carotid artery peak systolic velocity: 104 cm/sec. Internal carotid artery end diastolic velocity: 29 cm/sec. External carotid artery peak systolic velocity: 97 cm/sec. ICA/CCA peak systolic ratio: 1.4 Vazquez scale imaging description: Mild to moderate atherosclerotic changes are seen. Percent internal carotid artery stenosis: Less than 50% by velocity criteria. Vertebral artery: Flow direction is antegrade. Left side: Brachial blood pressure: Not done Common carotid artery peak systolic velocity: 76 cm/sec. Internal carotid artery peak systolic velocity: 138 cm/sec. Internal carotid artery end diastolic velocity: 35 cm/sec. External carotid artery peak systolic velocity: 105 cm/sec. ICA/CCA peak systolic ratio: 2.1 Vazquez scale imaging description: Mild atherosclerotic changes are seen. Percent internal carotid artery stenosis: 50-69% stenosis by velocity criteria Vertebral artery: Flow direction is antegrade. IMPRESSION: By velocity criteria, there is a 50-69% stenosis seen within the left internal carotid artery. The tr ue degree of stenosis is felt most likely to be at the lower end of this range. The estimate of stenosis included in the report of the imaging study was calculated using the NASCET method Reviewed by: Sree Wong MD on 01/05/2021 2:40 PM [facility] Approved by: Sree Wong MD on 01/05/2021 2:40 PM [facility] Station ID: [id number]
== END 2021-01-05 14:37 | disposition home or self-care (01) ==
LOC: DI 14:36
PROVIDERS: ATTEND Family Medicine
DX: I65.23 Occlusion and stenosis of bilateral carotid arteries (principal)
CPT/HCPCS: 93880

== ENCOUNTER 2021-01-17 09:24 | Outpatient (CLI) | payer MEDICARE, OTHER ==
[2021-01-17 10:16] LABS: CHOL/HDL RATIO 2.4 (<4.4); CHOLESTEROL 141 mg/dL; HDL CHOLESTEROL 59 mg/dL; LDL CHOLESTEROL,CALCULATED 72 mg/dL; LDL/HDL RATIO 1.2 (<4.4); TRIGLYCERIDES 49 mg/dL; VLDL CHOLESTEROL 10 mg/dL
== END 2021-01-17 09:25 | disposition home or self-care (01) ==
LOC: LAB 09:24
PROVIDERS: ATTEND Family Medicine
DX: R09.89 Other specified symptoms and signs involving the circulatory and respiratory systems (principal); R42 Dizziness and giddiness
CPT/HCPCS: 36415; 80061; 83721

== ENCOUNTER 2021-01-24 15:42 | Outpatient (CLI) | payer MEDICARE, OTHER ==
[2021-01-24 16:21] LABS: CREATININE 0.7 mg/dL (0.4-1.0)
[2021-01-24] MEDS ORDERED: IOPAMIDOL-300 100 ML VIAL ONE (16:37)
[2021-01-24] MEDS ORDERED: IOPAMIDOL-300 100 ML VIAL IVP ONE (16:52)
--- NOTE | 2021-01-25 14:19 | CT Report ---
PROCEDURE: ANGIO HEAD W/WO INDICATIONS: CAROTID ARTERY STENOSIS CONTRAST: IV CONTRAST: Isovue 300 ml: 80 PO CONTRAST: *NO PO CONTRAST TECHNIQUE: Precontrast 4.5 mm thick angled axial sections acquired from the foramen magnum to the vertex. Afte r the administration of intravenous contrast, 1 mm thick sections acquired through the [place] of [place] is. Postcontrast 4.5 mm thick sections then re-acquired from the foramen magnum to the vertex. 3-di mensional rzopvfa-yjvmrpmdl-udmvlggmhq (MIP) and/or volume rendering reformats were acquired of the c entral intracranial vasculature. For radiation dose reduction, the following was used: automated ex posure control, adjustment of mA and/or kV according to patient size. COMPARISON: None FINDINGS: Image quality: Excellent. Anterior circulation: Intracranial internal carotid arteries are normal in size and flow. The flow within the paired anterior cerebral arteries is normal and symmetric. The flow within the middle cer ebral arteries is normal and symmetric. The anterior communicating artery is seen. No aneurysms are seen. Posterior circulation: Visualized portions of the vertebral arteries demonstrate normal caliber, and join to form a normal appearing basilar artery. Incidentally noted origin of the right [employer]. F low within the posterior cerebral arteries is normal and symmetric. No aneurysms are seen. CSF spaces: Ventricles are normal in size and shape. Basal cisterns are patent. No extra-axial flu id collections. Brain: No midline shift. No intracranial bleeds or masses. Vazquez-white matter interface appears int act. Skull and face: Calvarium and facial bones appear intact, without suspicious lesions. Sinuses: Visualized sinuses and mastoids are clear. IMPRESSION: No immediately significant stenosis or occlusion of the intracranial arterial circulation. No acute intracranial abnormality. Reviewed by: Simon Rivera MD on 01/25/2021 2:17 PM PDT Approved by: Simon Rivera MD on 01/25/2021 2:17 PM PDT Station ID: [id number]
--- NOTE | 2021-01-25 14:26 | CT Report ---
PROCEDURE: ANGIO NECK W INDICATIONS: CAROTID ARTERY STENOSIS CONTRAST: IV CONTRAST: Isovue 300 ml: 80 PO CONTRAST: *NO PO CONTRAST TECHNIQUE: After the administration of intravenous contrast, 1.5 mm axial sections acquired from the aortic arch to the [place] of [place]. Coronal 3-D maximum intensity projection (MIP) and/or volume rendering ref ormats were then performed. For radiation dose reduction, the following was used: automated exposur e control, adjustment of mA and/or kV according to patient size. COMPARISON: None. FINDINGS: Image quality: Excellent. Carotid system: The great vessels demonstrate a conventional anatomy as they arise from the aortic a rc. The origins of the common carotid arteries appear patent. The common carotid arteries demonstr ate normal calibers and courses. The bifurcation regions appear normal bilaterally. The internal ca rotid arteries demonstrate normal caliber and course. Posterior circulation: The origins of the vertebral arteries appear patent. The more superior porti ons of the vertebral arteries demonstrate normal course and caliber. They join to form a normal appe aring basilar artery. Soft tissues: Visualized neck soft tissues demonstrate no suspicious abnormalities. Bones: No suspicious bony lesions. Visualized cervical spine appears normally aligned. IMPRESSION: No hemodynamically significant stenosis of the major extracranial arterial vasculature. Mild atherosclerotic calcifications in the carotid systems with no significant narrowing. The estimate of stenosis included in the report of the imaging study was calculated using the NASCET method Reviewed by: Simon Rivera MD on 01/25/2021 2:25 PM PDT Approved by: Simon Rivera MD on 01/25/2021 2:25 PM PDT Station ID: [id number]
== END 2021-01-24 15:43 | disposition home or self-care (01) ==
LOC: LAB 15:42
PROVIDERS: ATTEND Family Medicine
DX: I65.22 Occlusion and stenosis of left carotid artery (principal)
CPT/HCPCS: 36415; 70496; 70498; 82565; Q9967

== ENCOUNTER 2021-03-06 13:35 | Outpatient (CLI) | payer MEDICARE, OTHER | END 2021-03-06 13:36 | disposition EMS.NT | LOC: EMS 13:35 | DX: Z04.1 Encounter for examination and observation following transport accident (principal) ==

== ENCOUNTER 2021-05-22 12:19 | Outpatient (CLI) | payer MEDICARE, OTHER ==
[2021-05-22 12:45] LABS: CALCIUM 9.1 mg/dL (8.5-10.3); CREATININE 0.7 mg/dL (0.4-1.0); POTASSIUM 3.6 mmol/L (3.5-5.0)
[2021-05-22 13:06] LABS: THYROID STIMULATING HORMONE 0.56 uIU/mL (0.34-5.60)
== END 2021-05-22 12:20 | disposition home or self-care (01) ==
LOC: LAB 12:19
PROVIDERS: ATTEND Internal Medicine Endocrinology, Diabetes & Metabolism
DX: E21.3 Hyperparathyroidism, unspecified (principal); E03.8 Other specified hypothyroidism; E06.3 Autoimmune thyroiditis; Z98.84 Bariatric surgery status
CPT/HCPCS: 36415; 80048; 84443

== ENCOUNTER 2021-05-30 08:20 | Outpatient (CLI) | payer MEDICARE, OTHER ==
--- NOTE | 2021-05-30 18:56 | DEXA Report ---
PROCEDURE: Dexa Spine and/or Hip INDICATIONS: POST MENOPAUSAL,OSTEOPOROSIS TECHNIQUE: Dual energy x-ray absorptiometry (DXA) was performed on a [employer] System. Regions measur ed are the AP Spine, femoral neck, and if needed forearm. COMPARISON: Prior studies dating back to May 14, 2017 FINDINGS: Lumbar Spine: Bone Mineral Density 1.075 g/cm/cm,T score -0.9, normal Left Femoral Neck: Bone Mineral Density 0.790 g/cm/cm, T score -1.8, osteopenia Left forearm: Bone Mineral Density 0.44 g/cm/cm, T score -3.9, osteoporosis (T score greater or equal to -1.0: NORMAL) (T score from -1.1 to -2.4: OSTEOPENIA) (T score less than or equal to -2.5 to: OSTEOPOROSIS) Impression: Bone mineral density as detailed above. Patients with diagnosis of osteoporosis or osteopenia should have regular bone mineral density assess ment. For those eligible for Medicare, routine testing is allowed once every 2 years. Testing frequ ency can be increased for patients who have rapidly progressing disease or for those who are receivin g medical therapy to restore bone mass. Reviewed by: Major Mathew MD on 05/30/2021 6:54 PM PST Approved by: Major Mathew MD on 05/30/2021 6:54 PM PST Station ID: [id number]
== END 2021-05-30 08:21 | disposition home or self-care (01) ==
LOC: DI 08:20
PROVIDERS: ATTEND Internal Medicine
DX: Z78.0 Asymptomatic menopausal state (principal); M81.0 Age-related osteoporosis without current pathological fracture

== ENCOUNTER 2021-09-18 09:56 | Outpatient (CLI) | payer MEDICARE, OTHER ==
[2021-09-18 10:31] LABS: BASOPHILS # (AUTO) 0.1 10^3/uL (0.0-0.1); BASOPHILS % (AUTO) 0.8 %; EOSINOPHILS # (AUTO) 0.2 10^3/uL (0.0-0.7); EOSINOPHILS % (AUTO) 2.4 %; HCT - HEMATOCRIT 37.6 % (37.0-47.0); HGB - HEMOGLOBIN 12.6 g/dL (12.0-16.0); LYMPHOCYTES # (AUTO) 1.6 10^3/uL (1.5-3.5); LYMPHOCYTES % (AUTO) 24.7 %; MEAN CORPUSCULAR HEMOGLOBIN 32.7 pg (27.0-31.0); MEAN CORPUSCULAR HGB CONC 33.5 g/dL (32.0-36.0); MEAN CORPUSCULAR VOLUME 97.7 fL (81.0-99.0); MONOCYTES # (AUTO) 0.3 10^3/uL (0.0-1.0); NEUTROPHILS # (AUTO) 4.4 10^3/uL (1.5-6.6); NEUTROPHILS % (AUTO) 66.9 %; PLT - PLATELET COUNT 162 10^3/uL (130-450); RED BLOOD COUNT 3.85 10^6/uL (4.20-5.40); RED CELL DISTRIBUTION WIDTH 13.7 % (12.0-15.0); WHITE BLOOD COUNT 6.6 x10^3/uL (4.8-10.8)
[2021-09-18 10:55] LABS: % IRON SATURATION 30 % (20-50); ALBUMIN 4.1 g/dL (3.2-5.5); ALBUMIN/GLOBULIN RATIO 1.7 (1.0-2.2); ALKALINE PHOSPHATASE 63 IU/L (42-121); ALT ALANINE AMINOTRANSFERASE 14 IU/L (10-60); AST ASPARTATE AMINOTRANSFERASE 25 IU/L (10-42); BILIRUBIN,TOTAL 0.7 mg/dL (0.2-1.0); BUN - BLOOD UREA NITROGEN 14 mg/dL (6-20); CALCIUM 9.4 mg/dL (8.5-10.3); CARBON DIOXIDE - CO2 27 mmol/L (21-32); CHLORIDE 98 mmol/L (101-111); CHOL/HDL RATIO 2.1 (<4.4); CHOLESTEROL 159 mg/dL; CREATININE 0.7 mg/dL (0.4-1.0); GFR - MDRD 80 (>89); GLUCOSE 94 mg/dL (70-100); HDL CHOLESTEROL 76 mg/dL; IRON 97 ug/dL (28-170); LDL CHOLESTEROL,CALCULATED 74 mg/dL; SODIUM 136 mmol/L (135-145); TOTAL IRON BINDING CAPACITY 328 ug/dL (250-450); TOTAL PROTEIN 6.5 g/dL (6.7-8.2); TRANSFERRIN 234 mg/dL (192-382); TRIGLYCERIDES 46 mg/dL; VLDL CHOLESTEROL 9 mg/dL
[2021-09-18 11:01] LABS: THYROID STIMULATING HORMONE 1.06 uIU/mL (0.34-5.60)
[2021-09-18 11:07] LABS: ESTIMATED AVERAGE GLUCOSE 111 mg/dL (70-100); HEMOGLOBIN A1c% 5.5 % (4.27-6.07)
[2021-09-18 11:08] LABS: FERRITIN 47.5 ng/mL (11.0-306.8)
[2021-09-20 14:06] LABS: CERULOPLASMIN 37 mg/dL (18-53)
== END 2021-09-18 09:57 | disposition home or self-care (01) ==
LOC: LAB 09:56
PROVIDERS: ATTEND Nurse Practitioner Family
DX: K91.2 Postsurgical malabsorption, not elsewhere classified (principal); E03.9 Hypothyroidism, unspecified
CPT/HCPCS: 36415; 80053; 80061; 82306; 82390; 82525; 82607; 82728; 82747; 83036; 83540; 83721; 83970; 84425; 84443; 84466; 84590; 84630; 85025

== ENCOUNTER 2022-04-29 08:00 | Outpatient (CLI) | payer MEDICARE, OTHER ==
[2022-04-29 17:59] LABS: BILIRUBIN,URINE NEGATIVE (NEGATIVE); CLARITY,URINE CLOUDY (CLEAR); GLUCOSE, URINE (UA) NEGATIVE (NEGATIVE); KETONES,URINE (UA) TRACE mg/dL (NEGATIVE); LEUKOCYTE ESTERASE, URINE MODERATE (NEGATIVE); NITRITE,URINE NEGATIVE (NEGATIVE); OCCULT BLOOD,URINE MODERATE (NEGATIVE); PROTEIN,URINE 30 mg/dL (NEGATIVE); UROBILINOGEN,URINE 1 (NORMAL) E.U./dL (NORMAL)
[2022-04-29 18:20] LABS: BACTERIA,URINE Many /HPF (None Seen); SQUAMOUS EPITHELIAL CELL,UR FEW Squamous (<= Few); WBC,URINE >25 /HPF (0-5)
== END 2022-04-29 23:59 | disposition home or self-care (01) ==
LOC: LAB.N 08:00
PROVIDERS: ATTEND Emergency Medicine
DX: R30.0 Dysuria (principal)
CPT/HCPCS: 81001; 87086; 87181

== ENCOUNTER 2023-05-27 12:41 | Outpatient (CLI) | payer MEDICARE, OTHER ==
--- NOTE | 2023-05-27 17:27 | XRAY Report ---
PROCEDURE: Humerus LT INDICATIONS: EVAL FOR FX TECHNIQUE: 2 views of the humerus were acquired. COMPARISON: None. FINDINGS: Bones: No fractures or dislocations. No suspicious bony lesions. Soft tissues: No suspicious soft tissue calcifications or masses. IMPRESSION: No acute bony abnormality. Reviewed by: Marcio Marx MD on 05/27/2023 5:26 PM PST Approved by: Marcio Marx MD on 05/27/2023 5:26 PM PST Station ID: [id number]
--- NOTE | 2023-05-27 17:27 | XRAY Report ---
PROCEDURE: Forearm LT INDICATIONS: EVAL FOR FX TECHNIQUE: 2 views of the forearm were acquired. COMPARISON: None. FINDINGS: Bones: No fractures or dislocations. No suspicious bony lesions. Soft tissues: No suspicious soft tissue calcifications or masses. IMPRESSION: No acute bony abnormality. Reviewed by: Marcio Marx MD on 05/27/2023 5:25 PM PST Approved by: Marcio Marx MD on 05/27/2023 5:25 PM PST Station ID: [id number]
--- NOTE | 2023-05-27 17:28 | XRAY Report ---
PROCEDURE: Shoulder 3 View LT INDICATIONS: EVAL FOR FX TECHNIQUE: 3 views of the shoulder were acquired. COMPARISON: None. FINDINGS: Bones: No fractures or dislocations. No suspicious bony lesions. Visualized ribs appear intact. There is moderate AC joint degenerative change present no significant glenohumeral joint degenerative change is seen. Soft tissues: No suspicious soft tissue calcifications. The visualized lungs are within normal limi ts. IMPRESSION: 1. No evidence for acute osseous abnormality involving the left shoulder. 2. Xiyu-[id number]-yhtxvhoa left AC joint degenerative change. Reviewed by: Marcio Marx MD on 05/27/2023 5:27 PM PST Approved by: Marcio Marx MD on 05/27/2023 5:27 PM PST Station ID: [id number]
== END 2023-05-27 12:42 | disposition home or self-care (01) ==
LOC: DI 12:41
PROVIDERS: ATTEND Internal Medicine
DX: M19.012 Primary osteoarthritis, left shoulder (principal)

== ENCOUNTER 2023-10-16 08:16 | Outpatient (CLI) | payer MEDICARE ==
[2023-10-16 08:31] LABS: BASOPHILS # (AUTO) 0.1 10^3/uL (0.0-0.1); BASOPHILS % (AUTO) 0.7 %; HCT - HEMATOCRIT 38.5 % (37.0-47.0); HGB - HEMOGLOBIN 12.2 g/dL (12.0-16.0); LYMPHOCYTES # (AUTO) 1.4 10^3/uL (1.5-3.5); LYMPHOCYTES % (AUTO) 21.3 %; MEAN CORPUSCULAR HEMOGLOBIN 31.3 pg (27.0-31.0); MEAN CORPUSCULAR HGB CONC 31.7 g/dL (32.0-36.0); MEAN CORPUSCULAR VOLUME 98.7 fL (81.0-99.0); MEAN PLATELET VOLUME 9.5 fL (7.9-10.8); MONOCYTES # (AUTO) 0.5 10^3/uL (0.0-1.0); MONOCYTES % (AUTO) 6.9 %; NEUTROPHILS # (AUTO) 4.8 10^3/uL (1.5-6.6); PLT - PLATELET COUNT 181 10^3/uL (130-450); RED CELL DISTRIBUTION WIDTH 13.7 % (12.0-15.0); WHITE BLOOD COUNT 6.7 x10^3/uL (4.8-10.8)
[2023-10-16 08:46] LABS: ALBUMIN/GLOBULIN RATIO 1.7 (1.0-2.2); ALKALINE PHOSPHATASE 65 IU/L (42-121); ALT ALANINE AMINOTRANSFERASE 11 IU/L (10-60); AST ASPARTATE AMINOTRANSFERASE 20 IU/L (10-42); BILIRUBIN,TOTAL 0.6 mg/dL (0.2-1.0); BUN - BLOOD UREA NITROGEN 22 mg/dL (6-20); CALCIUM 10.1 mg/dL (8.5-10.3); CARBON DIOXIDE - CO2 32 mmol/L (21-32); CHLORIDE 102 mmol/L (101-111); CHOL/HDL RATIO 2.2 (<4.4); CHOLESTEROL 155 mg/dL; CREATININE 0.7 mg/dL (0.6-1.3); GFR - MDRD 80 (>89); GLUCOSE 97 mg/dL (74-104); HDL CHOLESTEROL 71 mg/dL; LDL CHOLESTEROL,CALCULATED 69 mg/dL; POTASSIUM 3.9 mmol/L (3.5-4.5); SODIUM 138 mmol/L (135-145); TOTAL PROTEIN 6.3 g/dL (6.4-8.9); TRIGLYCERIDES 75 mg/dL (48-352); VLDL CHOLESTEROL 15 mg/dL
[2023-10-16 09:02] LABS: THYROID STIMULATING HORMONE 0.94 uIU/mL (0.34-5.60)
== END 2023-10-16 08:17 | disposition home or self-care (01) ==
LOC: LAB 08:16
PROVIDERS: ATTEND Family Medicine
DX: E21.3 Hyperparathyroidism, unspecified (principal); I10 Essential (primary) hypertension; J45.909 Unspecified asthma, uncomplicated; E03.9 Hypothyroidism, unspecified
CPT/HCPCS: 36415; 80053; 80061; 83721; 84443; 85025